=== PATIENT | female | born 1990 | race Asian ===

== ENCOUNTER → 2023-06-12 18:13 | Outpatient (CLI) | payer OTHER, SELFPAY ==
--- NOTE | ~2023-06-12 | XR_ITS ---
EXAMINATION: XR chest 2V DATE: 06/12/2023 18:57 INDICATION: Acute exacerbation of asthma. TECHNIQUE: Frontal and lateral views of the chest were obtained. COMPARISON: None. FINDINGS: There is no pneumonia, pleural effusion, or pneumothorax. The heart size is normal. IMPRESSION: 1. No acute cardiopulmonary disease. Reviewed, dictated and finalized at location [facility]. [facility]
== END ==
PROVIDERS: PCP Family Medicine; Visit Provider Family Medicine
DX: J45.901 Unspecified asthma with (acute) exacerbation (principal)
CPT/HCPCS: 71046

== ENCOUNTER 2024-02-18 17:02 | Emergency (ER) | payer OTHER, SELFPAY ==
[2024-02-18 17:14] VITALS: BP 132/95; PULSE 109; RESP 16; TEMP 37.2; O2SAT 100
[2024-02-18 17:16] VITALS: BP 132/95; PULSE 109; RESP 16; TEMP 37.2; O2SAT 100
[2024-02-18 17:37] LABS: EDSTREPNEGPOS1 Negative (Negative)
--- NOTE | 2024-02-18 17:41 | ED.URI ---
HPI - URI/Sore Throat General Chief Complaint: Skin/Abscess/Foreign Body Stated Complaint: body aches and chills/sores in mouth Time Seen by Provider: 02/18/24 17:28 Source: patient and RN notes reviewed Mode of arrival: ambulatory Limitations: no limitations History of Present Illness HPI Narrative: Patient presents today with a 4 day history of body aches, chills, sore throat, headache. Yesterday she developed some burning and tingling to the tips of her fingers and toes. Today she noticed a rash to the palms of her hands and fingers as well as some sores in her mouth. She has been taking some DayQuil and NyQuil with some relief of symptoms. Denies any known sick contacts. Related Data Home Medications Medication Instructions Recorded Confirmed albuterol 90 mcg-budesonide 80 1 inh inhalation DIRECTED 02/18/24 02/18/24 mcg/actuation HFA aerosol inhaler (Airsupra) Allergies Allergy/AdvReac Type Severity Reaction Status Date / Time No Known Allergies Allergy Verified 02/18/24 17:16 Review of Systems Review of Systems: CONSTITUTIONAL: Denies fever, or sweats.+ body aches, chills EYES: Denies visual changes, redness, or discharge. ENT: Denies rhinorrhea, congestion, or otalgia.+ sore throat, mouth lesions CARDIOVASCULAR: Denies chest pain, palpitations, or edema. RESPIRATORY: Denies cough or dyspnea. GASTROINTESTINAL: Denies abdominal pain, nausea, vomiting, or diarrhea. GENITOURINARY: Denies dysuria or hematuria. SKIN: + rash MUSCULOSKELETAL: Denies back pain, joint pain, or myalgia. NEUROLOGIC: Denies numbness, or weakness.+ headache, tingling in fingers and toes PSYCH: Denies depression or anxiety. PMFSH Comments At time of signature, I have reviewed and agree with nursing past medical, surgical, social and family history unless otherwise noted. Please see nursing chart for further information. There is no relevant family history pertinent to the presenting complaint Exam Narrative: GENERAL: Well-appearing, well-nourished, and in no acute distress. HEAD: Normocephalic, atraumatic. EYES: EOMI. No redness or drainage. Conjunctivae normal. ENT: Mucous membranes pink and moist. Multiple white vesicular lesions on an erythematous base to the pharynx, few to sublingual area and inner lower lip. Nares clear. No rhinorrhea. TMs normal bilaterally. NECK: Normal AROM. Supple. No lymphadenopathy. CHEST: No respiratory distress. Clear to auscultation. HEART: Regular rate and rhythm. No murmur appreciated. EXTREMITIES: Normal range of motion. No edema. SKIN: Warm, dry. Capillary refill normal. Normal skin turgor. Scattered erythematous macular lesions to the bilateral palms, as well as few to the left big toe. NEURO: No focal deficits. Alert and oriented x3. Gait steady. PSYCH: Normal affect. No signs of depression or anxiety. Course Course Level of Care: Express Care Visit Vital Signs Vital signs: Vital Signs Temperature 99.0 F 02/18/24 17:14 Pulse Rate 109 H 02/18/24 17:14 Respiratory Rate 16 02/18/24 17:14 Blood Pressure 132/95 H 02/18/24 17:14 Pulse Oximetry 100 02/18/24 17:14 Oxygen Delivery Room Air 02/18/24 17:14 Temperature 99.0 F 02/18/24 17:16 Pulse Rate 109 H 02/18/24 17:16 Respiratory Rate 16 02/18/24 17:16 Blood Pressure 132/95 H 02/18/24 17:16 Pulse Oximetry 100 02/18/24 17:16 Oxygen Delivery Room Air 02/18/24 17:16 Reviewed MDM - URI/Sore Throat MDM Narrative Medical decision making narrative: Rapid strep negative. Symptoms consistent with [id number]. Anticipatory guidance given. Differential Diagnosis Differential diagnosis: Likely upper respiratory infection, viral infection, pharyngitis and other (Herpes simplex, impetigo, [id number], strep throat, scarlet fever) Lab Data Attestation: I reviewed the patient's lab results. Labs: Lab Results 02/18/24 Range/Units 17:36 POC Grp A Strep Scre
== END 2024-02-18 17:50 | disposition home or self-care (01) ==
PROVIDERS: Emergency Provider Nurse Practitioner; PCP Registered Nurse
DX: B08.4 Enteroviral vesicular stomatitis with exanthem (principal)
CPT/HCPCS: 87880; 99212; G0463